=== PATIENT | male | born 1960 | race Caucasian/White ===

== ENCOUNTER 2020-05-18 12:36 | Inpatient (IN) | payer OTHER ==
[~2020-05-18] VITALS: Ht 170.2 cm; Wt 103.9 kg
[~2020-05-18 12:36] MED LIST: ALBU8.5H8 PO; AMLO10TA8 PO; ASPI-13 PO; ATEN-105 PO; ATOR-2 PO; CIME400T PO; CLON0.2T10 PO; CLON0.3T4 PO; CLOP75TA PO; DULO60CA7 PO; FENO54TA17 PO; FLUO20CA23 PO; FLUO40CA2 PO; GABA300C PO; GABA400C PO; HYDR-3240; HYDR-3240 PO; HYDR1POW19 PO; LISI-468 PO; NAPR-856 PO; NITR0.4T28 SL; NITR0.4T41 PO; OMEP40CA3 PO; RIZA10TA5 PO
[2020-05-18] MEDS ORDERED: CHLO25TA PO (13:07)
[2020-05-18] MEDS ORDERED: CLON-364 PO (13:08)
[2020-05-18] MEDS ORDERED: FENO67CA PO (13:08)
[2020-05-18] MEDS ORDERED: SERT100T32 PO (13:10)
[2020-05-18] MEDS ORDERED: GABAPENTIN (13:10)
[2020-05-18] MEDS ORDERED: VALSARTAN (13:11)
[2020-05-18] MEDS ORDERED: SODIUM CHLORIDE FLUSH 10ML SYR IVF ONE (13:30)
[2020-05-18] MEDS ORDERED: ONDANSETRON 2MG/ML, 2ML IVPush ONE (13:30)
[2020-05-18] MEDS ORDERED: SODIUM CHLORIDE 0.9% 1,000ML IVBOLUS ONE (13:30)
[2020-05-18] MEDS ORDERED: MORPHINE SULFATE 4 MG/ML, 1ML ONE (13:36)
[2020-05-18] MEDS ORDERED: ONDANSETRON 2MG/ML, 2ML ONE (13:36)
[2020-05-18] MEDS: MORPHINE SULFATE 4 MG/ML, 1ML IVPush PRN ×2 (13:38→22:02)
[2020-05-18 13:53] LABS: BASOPHILS % (AUTO) 1 % (0-1); EOSINOPHILS % (AUTO) 2 % (1-7); LYMPHOCYTES % (AUTO) 15 % (22-44); MEAN CORPUSCULAR HEMOGLOBIN 29.1 pg (27.5-34.5); MEAN CORPUSCULAR HGB CONC 33.7 g/dL (33.2-36.2); MEAN PLATELET VOLUME 8.3 fL (7.4-10.4); MONOCYTES % (AUTO) 8 % (2-9); NEUTROPHILS % (AUTO) 75 % (42-75); PLATELET COUNT 248 x10^3/uL (130-400); RED BLOOD COUNT 5.05 x10^6/uL (4.38-5.82); RED CELL DISTRIBUTION WIDTH 14.5 % (9.4-14.8)
[2020-05-18 13:58] LABS: MD NO
[2020-05-18 14:03] LABS: ALBUMIN 3.2 g/dL (3.4-5.0); ANION GAP 4 mmol/L (5-15); CALCIUM 9.2 mg/dL (8.5-10.1); CHLORIDE 104 mmol/L (98-107); CREATININE 1.21 mg/dL (0.7-1.3)
--- NOTE | 2020-05-18 14:04 | NUR ---
PT REPORTS HE HAS A PAINFUL MASS IN HIS TESTCLE THAT IS CAUSING RIGHT SIDED LOWER ABD PAIN X2 DAYS. FAMILY IN ROOM. PT IS AT US.
--- NOTE | 2020-05-18 14:44 | NUR ---
PT VISITING WITH IN ROOM. UA SENT. VS STABLE. NO ACUTE DISTRESS NOTED. WILL CONTINUE TO MONITOR.
[2020-05-18] MEDS ORDERED: PIPERACILLIN/TAZO/PMX 3.375GM 50 ML IV ONE (15:00)
[2020-05-18] MEDS ORDERED: VANCOMYCIN PER PHARMACY MC PRN ×2 (15:00→16:30)
[2020-05-18 15:25] LABS: MICROSCOPIC INDICATED
[2020-05-18] MEDS ORDERED: PIPERACILLIN/TAZO/PMX 3.375GM 50 ML ONE (15:26)
[2020-05-18] MEDS ORDERED: ENALAPRILAT 1.25 MG/ML, 2ML IVPush PRN (15:30)
[2020-05-18] MEDS ORDERED: morphine SULFATE 10 MG/ML, 1ML IVPush PRN (15:30)
[2020-05-18] MEDS ORDERED: VANCOMYCIN 2,500 MG in SODIUM CHLORIDE 0.9% 500 ML IV ONE (15:30)
[2020-05-18] MEDS ORDERED: ONDANSETRON 2MG/ML, 2ML IVPush PRN (15:30)
[2020-05-18] MEDS ORDERED: ONDANSETRON ODT 4 MG PO PRN (15:30)
[2020-05-18] MEDS ORDERED: ALBUTEROL HFA 90 MCG/SPRAY INH PRN (15:30)
[2020-05-18] MEDS ORDERED: ACETAMINOPHEN 325 MG TABLET PO PRN (15:30)
--- NOTE | 2020-05-18 15:32 | NUR ---
BOTH BLOOD CULTURES DRAWN BEFORE ABX GIVEN
--- NOTE | 2020-05-18 16:23 | NUR ---
PT RESTING IN ROOM. VS STABLE. NO ACUTE DISTRESS NOTED. CALL LIGHT IN PLACE. WILL CONTINUE TO MONITOR.
[2020-05-18] MEDS ORDERED: HYDROcodone/APAP 5/325 TABLET ONE (17:54)
[2020-05-18] MEDS: HYDROcodone/APAP 5/325 TABLET PO PRN ×2 (17:59→22:24)
--- NOTE | 2020-05-18 18:00 | NUR ---
PT MEDICATED FOR A 9/10 HEADACHE. AT BEDSIDE. VS STABLE. WILL CONTINUE TO MONITOR.
--- NOTE | 2020-05-18 18:46 | NUR ---
TELEPHONE SBAR HAND-OFF REPORT GIVEN TO RYAN GROSS.
[2020-05-18] MEDS ORDERED: PHARMACOKINETIC CONSULTATION MC ONE (20:00)
[2020-05-18] MEDS ORDERED: PHARMACOKINETIC MONITORING MC PRN (20:00)
[2020-05-18] MEDS ORDERED: FAMOTIDINE 40 MG TABLET ONE (20:29)
[2020-05-18] MEDS: FAMOTIDINE 20 MG TABLET PO SCH (21:00)
[2020-05-18] MEDS: ENOXAPARIN 40 MG/0.4 ML SQ SCH (21:00)
[2020-05-18] MEDS: INSULIN LISPRO 100 UNITS/ML, PEN SQ-INSULIN SCH ×2 (21:00→21:11)
[2020-05-18] MEDS: AMLODIPINE 10 MG TAB PO SCH (21:09)
[2020-05-18] MEDS: AMPICILLIN/SULBACTAM 3 GM in SODIUM CHLORIDE 0.9% 100 ML IV SCH (21:10)
[2020-05-18] MEDS: ATORVASTATIN 80 MG TABLET PO SCH (21:10)
[2020-05-18 21:28] VITALS: BP 110/75
[2020-05-18] MEDS: METRONIDAZOLE PMX 500MG/100ML 100 ML IV SCH (22:25)
[2020-05-19 01:51] VITALS: BP 115/80
[2020-05-19] MEDS: AMPICILLIN/SULBACTAM 3 GM in SODIUM CHLORIDE 0.9% 100 ML IV SCH ×4 (02:53→22:45)
[2020-05-19] MEDS: METRONIDAZOLE PMX 500MG/100ML 100 ML IV SCH ×3 (05:42→23:40)
[2020-05-19 06:53] LABS: BASOPHILS % (AUTO) 1 % (0-1); EOSINOPHILS % (AUTO) 2 % (1-7); LYMPHOCYTES % (AUTO) 19 % (22-44); MEAN CORPUSCULAR HEMOGLOBIN 29.1 pg (27.5-34.5); MEAN CORPUSCULAR HGB CONC 33.1 g/dL (33.2-36.2); MEAN PLATELET VOLUME 8.2 fL (7.4-10.4); MONOCYTES % (AUTO) 10 % (2-9); NEUTROPHILS % (AUTO) 69 % (42-75); PLATELET COUNT 233 x10^3/uL (130-400); RED CELL DISTRIBUTION WIDTH 14.5 % (9.4-14.8)
[2020-05-19 06:58] LABS: ANION GAP 4 mmol/L (5-15); CALCIUM 9.1 mg/dL (8.5-10.1); CHLORIDE 109 mmol/L (98-107); CREATININE 1.15 mg/dL (0.7-1.3)
[2020-05-19 07:12] LABS: MD NO
[2020-05-19 07:23] VITALS: BP 118/78
[2020-05-19] MEDS: INSULIN LISPRO 100 UNITS/ML, PEN SQ-INSULIN SCH ×4 (08:08→21:09)
[2020-05-19] MEDS: FAMOTIDINE 20 MG TABLET PO SCH ×2 (08:09→21:11)
[2020-05-19] MEDS: ASPIRIN 325 MG TABLET EC PO SCH (08:10)
[2020-05-19] MEDS: SERTRALINE 100MG TABLET PO SCH (08:10)
[2020-05-19] MEDS: SENNA/DOCUSATE TABLET PO SCH (08:12)
[2020-05-19] MEDS: HYDROcodone/APAP 5/325 TABLET PO PRN ×2 (08:12→16:41)
[2020-05-19] MEDS ORDERED: CHLORTHALIDONE 25 MG TABLET PO SCH (09:00)
[2020-05-19] MEDS ORDERED: ATENOLOL 100 MG TABLET PO SCH (09:00)
[2020-05-19] MEDS: VANCOMYCIN 2,000 MG in SODIUM CHLORIDE 0.9% 500 ML IV SCH (10:14)
[2020-05-19 13:57] VITALS: BP 120/86
[2020-05-19] MEDS: GABAPENTIN 300 MG CAPSULE PO SCH ×2 (16:00→21:09)
[2020-05-19] MEDS ORDERED: OMNIPAQUE 350 MG/ML, 100ML BOTTLE ONE (16:20)
[2020-05-19] MEDS ORDERED: BUPIVACAINE/PF 0.25% ONE (17:30)
[2020-05-19] MEDS ORDERED: FENTANYL PF 250 MCG/5ML ONE (18:02)
[2020-05-19] MEDS ORDERED: ESMOLOL 100 MG/10 ML ONE (18:05)
[2020-05-19] MEDS ORDERED: PROPOFOL 10 MG/ML, 20ML ONE (18:05)
[2020-05-19] MEDS ORDERED: SUCCINYLCHOLINE 20 MG/ML, 10ML ONE (18:05)
[2020-05-19] MEDS ORDERED: OXYcodone 5 MG/5 ML ORAL.SOL UDC PO PRN (19:00)
[2020-05-19] MEDS ORDERED: KETOROLAC 30 MG/1 ML IVPush PRN (19:00)
[2020-05-19] MEDS ORDERED: LABETALOL 5MG/ML, 20ML IV PRN (19:00)
[2020-05-19] MEDS ORDERED: METHOCARBAMOL 1,000 MG in DEXTROSE 5% 100 ML IV PRN (19:00)
[2020-05-19] MEDS ORDERED: ACETAMINOPHEN 325 MG TABLET PO PRN (19:00)
[2020-05-19] MEDS ORDERED: HYDROmorphone 1 MG/ML, 1ML INJ IVPush PRN (19:00)
[2020-05-19] MEDS ORDERED: FENTANYL PF 100 MCG/2ML IV PRN (19:00)
[2020-05-19] MEDS ORDERED: hydrALAzine 20 MG/ML, 1ML IV PRN (19:00)
[2020-05-19] MEDS ORDERED: EPHEDRINE 50 MG/ML, 1ML IVPush PRN (19:00)
[2020-05-19] MEDS ORDERED: PROMETHAZINE 25 MG SUPP PR PRN (19:00)
[2020-05-19] MEDS ORDERED: FENTANYL PF 100 MCG/2ML ONE (19:01)
[2020-05-19] MEDS ORDERED: OXYcodone 5 MG/5 ML ORAL.SOL UDC ONE (19:02)
[2020-05-19 19:45] VITALS: BP 125/85
[2020-05-19] MEDS ORDERED: FAMOTIDINE 40 MG TABLET ONE (20:56)
[2020-05-19] MEDS: ATENOLOL 50 MG TABLET PO SCH (21:10)
[2020-05-19] MEDS: ENOXAPARIN 40 MG/0.4 ML SQ SCH (21:10)
[2020-05-19] MEDS: AMLODIPINE 10 MG TAB PO SCH (21:11)
[2020-05-19] MEDS: ATORVASTATIN 80 MG TABLET PO SCH (21:12)
[2020-05-20] VITALS: BP 128/89
[2020-05-20] MEDS ORDERED: HEPARIN 5,000 UNITS/ML, 1ML IV ONE (00:30)
[2020-05-20] MEDS: HEPARIN 25,000 UNITS/250ML PMX 250 ML IV PRN (02:35)
[2020-05-20] MEDS: VANCOMYCIN 2,000 MG in SODIUM CHLORIDE 0.9% 500 ML IV SCH ×2 (03:51→22:29)
[2020-05-20] MEDS: AMPICILLIN/SULBACTAM 3 GM in SODIUM CHLORIDE 0.9% 100 ML IV SCH ×3 (06:16→16:54)
[2020-05-20] MEDS: GABAPENTIN 300 MG CAPSULE PO SCH ×4 (06:17→20:57)
[2020-05-20] MEDS: METRONIDAZOLE PMX 500MG/100ML 100 ML IV SCH ×2 (07:03→15:04)
[2020-05-20] MEDS: HYDROcodone/APAP 5/325 TABLET PO PRN ×2 (07:03→15:48)
[2020-05-20 07:58] VITALS: BP 116/78
[2020-05-20] MEDS: ATENOLOL 50 MG TABLET PO SCH ×2 (08:00→20:59)
[2020-05-20] MEDS: SERTRALINE 100MG TABLET PO SCH ×2 (08:00→08:09)
[2020-05-20] MEDS: ASPIRIN 325 MG TABLET EC PO SCH (08:00)
[2020-05-20] MEDS: FAMOTIDINE 20 MG TABLET PO SCH ×2 (08:08→20:58)
[2020-05-20] MEDS: FENOFIBRATE 145 MG TABLET PO SCH (08:09)
[2020-05-20] MEDS: INSULIN LISPRO 100 UNITS/ML, PEN SQ-INSULIN SCH ×4 (08:10→20:57)
[2020-05-20] MEDS: SENNA/DOCUSATE TABLET PO SCH (08:11)
[2020-05-20] MEDS: HEPARIN 5,000 UNITS/ML, 1ML IV PRN ×3 (09:01→22:29)
[2020-05-20 13:52] VITALS: BP 109/76
[2020-05-20 20:00] VITALS: BP 127/90
[2020-05-20] MEDS ORDERED: FAMOTIDINE 40 MG TABLET ONE (20:47)
[2020-05-20] MEDS: ATORVASTATIN 80 MG TABLET PO SCH (20:57)
[2020-05-20] MEDS: AMLODIPINE 10 MG TAB PO SCH (20:58)
[2020-05-21] MEDS: AMPICILLIN/SULBACTAM 3 GM in SODIUM CHLORIDE 0.9% 100 ML IV SCH ×4 (00:34→18:13)
[2020-05-21] MEDS: METRONIDAZOLE PMX 500MG/100ML 100 ML IV SCH ×2 (01:05→09:25)
[2020-05-21] MEDS: HEPARIN 25,000 UNITS/250ML PMX 250 ML IV PRN (01:07)
[2020-05-21] MEDS: HYDROcodone/APAP 5/325 TABLET PO PRN ×4 (02:31→20:17)
[2020-05-21 02:37] VITALS: BP 121/85
[2020-05-21 04:13] LABS: BASOPHILS % (AUTO) 1 % (0-1); EOSINOPHILS % (AUTO) 3 % (1-7); LYMPHOCYTES % (AUTO) 30 % (22-44); MEAN CORPUSCULAR HEMOGLOBIN 28.8 pg (27.5-34.5); MEAN CORPUSCULAR HGB CONC 32.9 g/dL (33.2-36.2); MEAN PLATELET VOLUME 8.2 fL (7.4-10.4); MONOCYTES % (AUTO) 10 % (2-9); NEUTROPHILS % (AUTO) 57 % (42-75); PLATELET COUNT 249 x10^3/uL (130-400); RED BLOOD COUNT 4.92 x10^6/uL (4.38-5.82); RED CELL DISTRIBUTION WIDTH 14.6 % (9.4-14.8)
[2020-05-21 04:22] LABS: ANION GAP 5 mmol/L (5-15); CALCIUM 9.1 mg/dL (8.5-10.1); CHLORIDE 108 mmol/L (98-107); CREATININE 1.08 mg/dL (0.7-1.3)
[2020-05-21 04:23] LABS: MD NO
[2020-05-21] MEDS: HEPARIN 5,000 UNITS/ML, 1ML IV PRN (04:35)
[2020-05-21] MEDS: GABAPENTIN 300 MG CAPSULE PO SCH ×4 (06:21→21:27)
[2020-05-21 07:13] VITALS: BP_SYST 131; BP_SYST 139; BP_DIAS 100; BP_DIAS 89
[2020-05-21] MEDS: SENNA/DOCUSATE TABLET PO SCH (07:55)
[2020-05-21] MEDS: FENOFIBRATE 145 MG TABLET PO SCH (07:55)
[2020-05-21] MEDS: FAMOTIDINE 20 MG TABLET PO SCH ×2 (07:55→21:28)
[2020-05-21] MEDS: SERTRALINE 100MG TABLET PO SCH ×2 (07:55)
[2020-05-21] MEDS: ATENOLOL 50 MG TABLET PO SCH ×2 (07:55→21:27)
[2020-05-21] MEDS: ASPIRIN 81 MG TABLET EC PO SCH (07:55)
[2020-05-21] MEDS: INSULIN LISPRO 100 UNITS/ML, PEN SQ-INSULIN SCH ×4 (07:57→21:27)
[2020-05-21] MEDS: APIXABAN 5 MG TABLET PO SCH ×2 (11:05→21:27)
[2020-05-21] MEDS: VANCOMYCIN 2,000 MG in SODIUM CHLORIDE 0.9% 500 ML IV SCH (15:56)
[2020-05-21 16:38] VITALS: BP 130/90
[2020-05-21 18:57] VITALS: BP 118/85
[2020-05-21] MEDS ORDERED: FAMOTIDINE 40 MG TABLET ONE (21:23)
[2020-05-21] MEDS: ATORVASTATIN 80 MG TABLET PO SCH (21:27)
[2020-05-21] MEDS: AMLODIPINE 10 MG TAB PO SCH (21:27)
[2020-05-22 00:30] VITALS: BP 121/83
[2020-05-22] MEDS: AMPICILLIN/SULBACTAM 3 GM in SODIUM CHLORIDE 0.9% 100 ML IV SCH ×2 (00:42→06:08)
[2020-05-22] MEDS: GABAPENTIN 300 MG CAPSULE PO SCH ×2 (05:22→10:05)
[2020-05-22] MEDS: INSULIN LISPRO 100 UNITS/ML, PEN SQ-INSULIN SCH ×3 (07:56→16:56)
[2020-05-22] MEDS: SENNA/DOCUSATE TABLET PO SCH (07:56)
[2020-05-22] MEDS: SERTRALINE 100MG TABLET PO SCH ×2 (07:57→08:14)
[2020-05-22] MEDS: APIXABAN 5 MG TABLET PO SCH (08:14)
[2020-05-22] MEDS: ASPIRIN 81 MG TABLET EC PO SCH (08:14)
[2020-05-22] MEDS: ATENOLOL 50 MG TABLET PO SCH (08:14)
[2020-05-22] MEDS: FENOFIBRATE 145 MG TABLET PO SCH (08:14)
[2020-05-22] MEDS: FAMOTIDINE 20 MG TABLET PO SCH (08:15)
[2020-05-22] MEDS: HYDROcodone/APAP 5/325 TABLET PO PRN (08:21)
[2020-05-22 09:13] VITALS: BP 139/105
[2020-05-22] MEDS: VANCOMYCIN 2,000 MG in SODIUM CHLORIDE 0.9% 500 ML IV SCH (10:08)
[2020-05-22 10:13] VITALS: BP 124/82
[2020-05-22] MEDS ORDERED: LINEZOLID 600 MG TABLET PO SCH (11:00)
[2020-05-22] MEDS ORDERED: APIX5TAB PO (13:43)
[2020-05-22] MEDS ORDERED: LINE600T15 PO (13:43)
[2020-05-22] MEDS ORDERED: ASPI81TA45 PO (13:43)
[2020-05-22 14:00] VITALS: BP 124/94
[2020-05-22] MEDS ORDERED: FLU VACC QS2020-21(6MOS UP)/PF 60MCG/0.5 ML SYR IM ONE (14:00)
[2020-05-22] MEDS ORDERED: METF500T PO (15:06)
== END 2020-05-22 17:01 | disposition home or self-care (01) | DRG 855 ==
LOC: ED 14:48 → SUATTDRO 15:16 → EDIP 15:42 → 3N 18:54
PROVIDERS: ADMIT Family Medicine; ATTEND Hospitalist
PROC: 0V950ZZ Drainage of Scrotum, Open Approach (ICD-10-PCS; principal; 2020-05-19 16:15)
DX: A41.9 Sepsis, unspecified organism (principal); N49.2 Inflammatory disorders of scrotum; E11.65 Type 2 diabetes mellitus with hyperglycemia; E66.9 Obesity, unspecified; Z68.35 Body mass index [BMI] 35.0-35.9, adult; Z88.8 Allergy status to other drugs, medicaments and biological substances; Z20.828 Contact with and (suspected) exposure to other viral communicable diseases; E78.00 Pure hypercholesterolemia, unspecified; E78.5 Hyperlipidemia, unspecified; F32.9 Major depressive disorder, single episode, unspecified; G47.33 Obstructive sleep apnea (adult) (pediatric); G89.29 Other chronic pain; I10 Essential (primary) hypertension; I25.10 Atherosclerotic heart disease of native coronary artery without angina pectoris; I25.2 Old myocardial infarction; I48.0 Paroxysmal atrial fibrillation; K40.90 Unilateral inguinal hernia, without obstruction or gangrene, not specified as recurrent; Z85.46 Personal history of malignant neoplasm of prostate; Z86.73 Personal history of transient ischemic attack (TIA), and cerebral infarction without residual deficits; Z90.79 Acquired absence of other genital organ(s); Z91.19 Patient's noncompliance with other medical treatment and regimen; Z95.5 Presence of coronary angioplasty implant and graft
CPT/HCPCS: 36415; 74177; 76870; 80048; 80202; 81001; 82040; 82962; 83036; 83605; 84145; 85025; 85520; 87040; 87070; 87075; 87077; 87186; 87205; 87635; 90686; 93005; 96361; 96365; 96375; G0378; J0295; J1644; J1650; J2405; J2543; J2704; J3010; J3370; Q9967; J0330; J1815; J2270; J7030; J7040

== ENCOUNTER 2020-06-03 11:44 | Emergency (ER) | payer OTHER ==
[~2020-06-03] VITALS: Ht 170.2 cm; Wt 99.4 kg
[~2020-06-03 11:44] MED LIST changes: +APIX5TAB PO; +ASPI81TA45 PO; +CHLO25TA PO; +CLON-364 PO; +FENO67CA PO; +GABAPENTIN; +LINE600T15 PO; +METF500T PO; +SERT100T32 PO; +VALSARTAN
[2020-06-03 11:50] VITALS: BP 143/93
== END 2020-06-03 14:09 | disposition home or self-care (01) ==
LOC: ED 13:19
DX: H54.3 Unqualified visual loss, both eyes (principal); E11.9 Type 2 diabetes mellitus without complications; I10 Essential (primary) hypertension; E78.00 Pure hypercholesterolemia, unspecified; I25.2 Old myocardial infarction; Z86.73 Personal history of transient ischemic attack (TIA), and cerebral infarction without residual deficits
CPT/HCPCS: 99281

== ENCOUNTER → 2021-01-02 | Outpatient (CLI) | payer BC, OTHER ==
[~2021-01-02] MED LIST changes: +AMLO-211 PO; -AMLO10TA8 PO; +HYDR-2214; +HYDR-2214 PO; -HYDR-3240; -HYDR-3240 PO; +REGADENOSON 0.4 MG/5 ML SYRINGE ONE
== END | disposition home or self-care (01) ==
LOC: CVU 06:55
PROVIDERS: ATTEND Physician Assistant Medical
DX: I08.0 Rheumatic disorders of both mitral and aortic valves (principal); I11.9 Hypertensive heart disease without heart failure; I48.0 Paroxysmal atrial fibrillation
CPT/HCPCS: 78452; 93017; 93306; A9502; J2785

== ENCOUNTER 2021-03-07 12:32 | Day surgery (SDC) | payer BC, OTHER ==
[~2021-03-07] VITALS: Ht 167.6 cm; Wt 104.0 kg
[~2021-03-07 12:32] MED LIST changes: -REGADENOSON 0.4 MG/5 ML SYRINGE ONE
[2021-03-07] MEDS ORDERED: CLON-364 PO (13:20)
[2021-03-07] MEDS ORDERED: VALS1TAB30 PO (13:20)
[2021-03-07] MEDS ORDERED: GABA-827 PO (13:20)
[2021-03-07] MEDS ORDERED: AMIO400T5 PO (13:21)
[2021-03-07] MEDS ORDERED: SERT100T32 PO (13:21)
[2021-03-07] MEDS ORDERED: HYDR-3237 PO (13:22)
[2021-03-07] MEDS ORDERED: GLYB2.5T2 PO (13:22)
[2021-03-07] MEDS ORDERED: PROPOFOL 10 MG/ML, 20ML ONE (13:23)
[2021-03-07] MEDS ORDERED: DILT180C77 PO (13:24)
[2021-03-07 13:26] VITALS: BP 112/76
[2021-03-07 13:34] LABS: ANION GAP 4 mmol/L (5-15); CALCIUM 9.4 mg/dL (8.5-10.1); CHLORIDE 105 mmol/L (98-107); CREATININE 1.57 mg/dL (0.7-1.3)
== END 2021-03-07 14:20 | disposition home or self-care (01) ==
LOC: CACL 12:32
PROVIDERS: ATTEND Internal Medicine Cardiovascular Disease
DX: I48.0 Paroxysmal atrial fibrillation (principal); I10 Essential (primary) hypertension; I25.10 Atherosclerotic heart disease of native coronary artery without angina pectoris; I25.2 Old myocardial infarction; E78.5 Hyperlipidemia, unspecified; E11.9 Type 2 diabetes mellitus without complications; J45.909 Unspecified asthma, uncomplicated; Z79.01 Long term (current) use of anticoagulants; Z79.82 Long term (current) use of aspirin; Z79.84 Long term (current) use of oral hypoglycemic drugs; Z79.891 Long term (current) use of opiate analgesic; Z79.899 Other long term (current) drug therapy; Z88.8 Allergy status to other drugs, medicaments and biological substances
CPT/HCPCS: 36415; 80048; 92960; J2704